=== PATIENT | female | born 1975 | race Caucasian/White ===

== ENCOUNTER 2019-02-12 18:30 | Emergency (ER) | payer BC ==
[~2019-02-12] VITALS: Ht 170.2 cm; Wt 63.6 kg
[2019-02-12 18:33] VITALS: Ht 170.2 cm; Wt 63.6 kg
[2019-02-12 18:55] LABS: BASOPHILS 0.3 % (0-2); EOSINOPHILS 2.3 % (0-7); HEMATOCRIT 39.3 % (36.0-48.0); HEMOGLOBIN 13.7 g/dL (12-16); IMMATURE GRANULOCYTES 0.3 % (0-5); LYMPHOCYTES 29.6 % (15-50); MCH 31.1 pg (26.0-34.0); MCHC 34.9 g/dL (31.0-37.0); MCV 89.3 fL (80.0-100.0); MEAN PLATELET VOLUME 10.1 fL (7.4-10.4); MONOCYTES 10.2 % (2-11); NEUTROPHILS 57.3 % (40-80); PLATELET COUNT 226 10x3/uL (130-400); RDW 12.5 % (11.5-14.5); WBC 7.8 10x3/uL (4.8-10.8)
[2019-02-12] MEDS ORDERED: HYDROCODON-ACE1 EA10 PO (19:31)
[2019-02-12 20:00] LABS: APPEARANCE HAZY (CLEAR); BILIRUBIN NEGATIVE (NEGATIVE); COLOR YELLOW (YELLOW); GLUCOSE NEGATIVE (NEGATIVE); KETONE NEGATIVE (NEGATIVE); NITRITE NEGATIVE (NEGATIVE); PROTEIN NEGATIVE (NEGATIVE); UROBILINOGEN NORMAL (NORMAL)
[2019-02-12 20:01] LABS: BACTERIA MANY /hpf (NEGATIVE); EPITHELIAL CELLS 0-5 /hpf (0-5); RED CELLS - URINE OCC /hpf (0-5); WHITE CELLS - URINE 0-5 /hpf (NEGATIVE)
[2019-02-12 20:02] LABS: MUCUS <1+ /lpf (NONE SEEN)
[2019-02-12 20:08] VITALS: BP 103/74
== END 2019-02-12 20:08 | disposition home or self-care (01) ==
LOC: D.ER 18:30
PROVIDERS: Emergency Medicine
DX: S79.912A Unspecified injury of left hip, initial encounter (principal); S39.93XA Unspecified injury of pelvis, initial encounter; S50.811A Abrasion of right forearm, initial encounter; V49.60XA Unspecified car occupant injured in collision with unspecified motor vehicles in traffic accident, initial encounter

== ENCOUNTER → 2019-02-21 21:30 | Outpatient (CLI) | payer BC ==
[2019-02-12 18:33] VITALS: BMI 21.9
[~2019-02-21 21:30] MED LIST: HYDROCODON-ACE1 EA10 PO
== END | disposition home or self-care (01) ==
LOC: D.MAMMO 14:15
PROVIDERS: ATTEND Family Medicine
DX: Z12.31 Encounter for screening mammogram for malignant neoplasm of breast (principal)

== ENCOUNTER → 2019-03-02 10:47 | Outpatient (CLI) | payer BC ==
[2019-02-12 18:33] VITALS: BMI 21.9
== END | disposition home or self-care (01) ==
LOC: D.US 10:47
PROVIDERS: ATTEND Nurse Practitioner
DX: R92.8 Other abnormal and inconclusive findings on diagnostic imaging of breast (principal)

== ENCOUNTER → 2020-05-07 13:31 | Outpatient (CLI) | payer BC ==
[2019-02-12 18:33] VITALS: BMI 21.9
== END | disposition home or self-care (01) ==
LOC: D.US 04-30 13:00
PROVIDERS: ATTEND Family Medicine
DX: E04.9 Nontoxic goiter, unspecified (principal)